=== PATIENT | male | born 1955 | race Caucasian/White ===

== ENCOUNTER 2021-07-10 07:06 | Day surgery (SDC) | payer OTHER ==
[~2021-07-10] VITALS: Ht 180.3 cm; Wt 96.6 kg
[~2021-07-10 07:06] MED LIST: HYDROmorphone 2 MG/ML VIAL IVP PRN; IV RINGERS,LACTATED 1000ML 1,000 ML IV SCH; MORPHINE SULFATE 2 MG/ML INJ. IVP PRN; PROCHLORPERAZINE 10 MG/2 ML VIAL. IVP PRN; fentaNYL PF VIAL 100 MCG/2 ML VIAL IVP PRN
[2021-07-10] MEDS ORDERED: ALPR1TAB6 PO (07:25)
[2021-07-10] MEDS ORDERED: OXCA600T9 PO (07:25)
[2021-07-10] MEDS ORDERED: OMEP40CA7 PO (07:25)
[2021-07-10] MEDS ORDERED: LISI10TA16 PO (07:25)
[2021-07-10] MEDS ORDERED: BUPIVACAINE MPF 0.25% 30 ML VIAL. ONE (08:11)
[2021-07-10] MEDS ORDERED: PROPOFOL 10 MG/ML (20ML) VIAL. IV ONE (08:13)
[2021-07-10] MEDS ORDERED: LIDOCAINE 1% PF 5 ML VIAL. ONE (08:13)
[2021-07-10] MEDS ORDERED: ONDANSETRON PF 4 MG/2 ML VIAL. ONE (08:14)
[2021-07-10] MEDS ORDERED: DEXAMETHASONE SOD PHOS 4 MG/ML VIAL ONE (08:14)
[2021-07-10] MEDS ORDERED: fentaNYL PF VIAL 100 MCG/2 ML VIAL ONE (08:14)
[2021-07-10] MEDS ORDERED: ePHEDrine PF IN SALINE 50 MG/10 ML SYRINGE. IV ONE (08:40)
[2021-07-10] MEDS ORDERED: GLYCOPYRROLATE 1 MG/5 ML VIAL. ONE (08:52)
[2021-07-10] MEDS ORDERED: KETOROLAC 30 MG/ML VIAL. ONE (09:20)
[2021-07-10] MEDS ORDERED: HYDR-2765 PO (09:36)
--- NOTE | 2021-07-10 09:39 | DISCH ---
DISCHARGE INSTRUCTIONS Condition on Discharge Condition on Discharge: Stable Activity After Discharge Activity Instructions for Disc: Other ROM activity (Keep elbow moving to let nerve glide and avoid scarring, avoid heavy lifting pushing pulling but can do fine motor use without restriction eating writing typing etc.) Lifting Instructions after Dis: No heavy lifting, No pulling or pushing Weight Bearing Status after Di: As tolerated Diet after Discharge Diet after Discharge: Regular Wound Incision Care Wound/Incision Care: Ice to area for comfort, Change dressing (May remove dressing in 3 days then may replace with Band-Aids, okay to shower no soaking until wound check) Contacting the after DC Call your doctor for: Concerns you may have Follow-Up Follow up with: Dr. Jones or Shona 10 days SOCORRO JONES MD Jul 10, 2021 09:39
[2021-07-10] MEDS ORDERED: SEVOFLURANE 61 TO 120 MINUTES. IH ONE (09:48)
[2021-07-10] MEDS ORDERED: PROCHLORPERAZINE 10 MG/2 ML VIAL. ONE (10:05)
[2021-07-10] MEDS ORDERED: HYDROcodone/APAP 7.5/325MG 1 TAB TABLET PO ONE (10:15)
[2021-07-10 10:40] VITALS: BP 134/60
--- NOTE | 2021-07-11 17:47 | PDOC4 ---
Operative Note Operative Note Date of surgery: 07/10/2021 Preoperative diagnosis: Left cubital tunnel syndrome Postoperative diagnosis: Same with severe ulnar nerve compression at left cubital tunnel Operative procedure: Left cubital tunnel release Surgeon: Robert Assist: Patrick fowler Anesthesia: General Complications: None Operative indications: Please see my orthopedic clinic note for detailed operative indications and note that patient had ulnar nerve progressive paresthesias confirmed by EMG testing unresponsive to nonoperative management. We had talked about the possibility of ulnar nerve release at the cubital tunnel and the possibility of nerve damage incomplete relief infection medical or other anesthetic complications among others all his questions were answered he agrees to proceed with surgical evaluation and treatment Operative text: Patient was identified procedure verified patient placed in the supine position on the operating table. After adequate amounts of general anesthesia were administered the left upper extremity was prepped and draped in the standard sterile fashion with an upper arm tourniquet. After timeout was performed patient procedure identified and verified the left upper extremity was exsanguinated by Esmarch bandage tourniquet inflated to 250 mmHg curvilinear incision was made over the medial elbow dissection carried out down to the cubital tunnel which was opened by sharp dissection proximally and the ulnar nerve identified and protected. Release was carried out proximally to area where the ulnar nerve across the intermuscular septum throughout the length of the cubital tunnel itself including the entrance and exit as well as decompressing the area where the ulnar nerve dives into the flexor pronator fascia and musculature. Severe ulnar nerve compression was noted particularly at the exit area of the cubital tunnel. Complete release was verified with no subluxation throughout elbow range of motion. Bleeding points controlled by electrocautery and thorough irrigation carried out normal saline solution. Closure accomplished with buried Vicryl suture skin closure with nylon suture sterile dressings were applied patient was returned to recovery room in stable condition having tolerated procedure well. Fingers were noted to be warm pink following deflation of the tourniquet. Patrick fowler was present for the procedure assisted in patient positioning prepping draping retraction closure and dressings SOCORRO LOREDO MD Jul 11, 2021 17:47
== END 2021-07-10 11:35 | disposition home or self-care (01) ==
LOC: SURG 07:06
PROVIDERS: ATTEND Orthopaedic Surgery
DX: G56.22 Lesion of ulnar nerve, left upper limb (principal); I10 Essential (primary) hypertension; E78.00 Pure hypercholesterolemia, unspecified; K21.9 Gastro-esophageal reflux disease without esophagitis; M19.90 Unspecified osteoarthritis, unspecified site; F41.9 Anxiety disorder, unspecified; F32.9 Major depressive disorder, single episode, unspecified; Z87.891 Personal history of nicotine dependence; Z79.899 Other long term (current) drug therapy; Z98.890 Other specified postprocedural states; Z88.1 Allergy status to other antibiotic agents; Z88.8 Allergy status to other drugs, medicaments and biological substances
CPT/HCPCS: 64718; A4930; A6402; J0690; J0780; J1100; J1885; J2405; J2704; J3010; J3490; A4657; A6452